=== PATIENT | male | born 1970 | race Caucasian/White ===

== ENCOUNTER 2017-01-16 05:01 | Emergency (ER) | payer BC ==
[~2017-01-16] VITALS: Ht 170.2 cm; Wt 97.0 kg
[~2017-01-16 05:01] MED LIST: ALEVE220 MG PO; ALLOPURINOL300 MG PO; FLEXERIL10 MG; FLEXERIL10 MG PO; FLONASE16 G1 BOTH NARES; INDOCIN25 MG PO; INDOCIN50 MG PO; INDOMETHACIN50 MG PO; KEFLEX500 MG PO; MITIGARE0.6 MG PO; MOTRIN600 MG PO; MOTRIN800 MG; MUCINEX D ER T1 EACH PO; NAPROSYN500 MG PO; NOHOMEMEDS; NORCO 5/3251 TABLET PO; NORCO 7.5/321 TABLET PO; PERCOCET 5/31 TABLET; PERCOCET 5/31 TABLET PO; PERCOCET 7.51 TABLET PO; TRICOR48 MG; ULTRAM50 MG PO; VIBRAMYCIN100 MG PO; no home med
[2017-01-16] MEDS ORDERED: INDOCIN25 MG PO (05:29)
[2017-01-16 05:44] VITALS: BP 148/88
== END 2017-01-16 05:44 | disposition home or self-care (01) ==
LOC: EME 05:01
DX: M10.9 Gout, unspecified (principal)
CPT/HCPCS: 99281; 99283

== ENCOUNTER 2017-03-26 19:19 | Emergency (ER) | payer BC ==
[~2017-03-26] VITALS: Ht 170.2 cm; Wt 103.3 kg
[2017-03-26] MEDS ORDERED: INDOCIN25 MG PO (21:02)
[2017-03-26 21:52] VITALS: BP 140/80
== END 2017-03-26 21:52 | disposition home or self-care (01) ==
LOC: EME 19:19
DX: M10.072 Idiopathic gout, left ankle and foot (principal)
CPT/HCPCS: 99281; 99284

== ENCOUNTER 2017-06-08 19:37 | Emergency (ER) | payer BC ==
[~2017-06-08] VITALS: Ht 170.2 cm; Wt 107.1 kg
[2017-06-08] MEDS ORDERED: MOTRIN800 MG PO (20:41)
[2017-06-08 21:44] VITALS: BP 135/88
== END 2017-06-08 21:30 | disposition home or self-care (01) ==
LOC: EME 19:37
DX: S50.02XA Contusion of left elbow, initial encounter (principal); W22.8XXA Striking against or struck by other objects, initial encounter
CPT/HCPCS: 73080; 99281; 99283

== ENCOUNTER 2017-06-10 17:52 | Emergency (ER) | payer BC ==
[~2017-06-10] VITALS: Ht 170.2 cm; Wt 106.0 kg
[~2017-06-10 17:52] MED LIST changes: +MOTRIN800 MG PO
[2017-06-10 19:03] LABS: HEMATOCRIT 41.2 % (38.0-50.0); MCH 29.8 PG (29.0-34.0); MCHC 33.7 G/DL (30.0-36.0); MCV 88.4 FL (86-99); MEAN PLAT.VOLUME 10.5 uM^3 (9.0-12.4); PLATELET COUNT 202 K/uL (156-360); RBC DIS.WIDTH-CV 13.1 % (11.8-14.6); RBC DIS.WIDTH-SD 42.4 % (39-53); RED BLOOD COUNT 4.66 M/uL (4.00-5.50); WHITE BLOOD COUNT 10.7 K/uL (4.1-10.2)
[2017-06-10 19:13] LABS: CHLORIDE 106 mEq/L (99-109); POTASSIUM 3.7 mEq/L (3.7-5.4); SODIUM 139 mEq/L (136-147)
[2017-06-10 19:14] LABS: GLUCOSE 105 mg/dL (70-99)
[2017-06-10 19:16] LABS: ANION GAP 9 MEQ/L (2-14)
[2017-06-10 19:18] LABS: GFR ESTIMATE (CALCULATED) > 59 mL/min/
[2017-06-10 19:19] LABS: UREA NITROGEN (BUN) 12 mg/dL (9-23)
[2017-06-10] MEDS ORDERED: CLEOCIN300 MG PO (19:29)
[2017-06-10 19:44] VITALS: BP 113/87
== END 2017-06-10 20:03 | disposition home or self-care (01) ==
LOC: EME 17:52
PROVIDERS: Physician Assistant Medical
DX: L03.114 Cellulitis of left upper limb (principal); S51.012A Laceration without foreign body of left elbow, initial encounter; W22.8XXA Striking against or struck by other objects, initial encounter; Z88.0 Allergy status to penicillin
CPT/HCPCS: 73080; 80048; 85027; 99281; 99284; J1885

== ENCOUNTER 2017-06-13 11:52 | Inpatient (IN) | payer BC ==
[~2017-06-13] VITALS: Ht 170.2 cm; Wt 102.0 kg
[~2017-06-13 11:52] MED LIST changes: +CLEOCIN300 MG PO
[2017-06-13 13:38] LABS: HEMATOCRIT 42.7 % (38.0-50.0); MCH 29.5 PG (29.0-34.0); MCHC 33.5 G/DL (30.0-36.0); MCV 88.2 FL (86-99); MEAN PLAT.VOLUME 10.4 uM^3 (9.0-12.4); PLATELET COUNT 257 K/uL (156-360); RBC DIS.WIDTH-CV 12.7 % (11.8-14.6); RBC DIS.WIDTH-SD 41.3 % (39-53); RED BLOOD COUNT 4.84 M/uL (4.00-5.50); WHITE BLOOD COUNT 9.4 K/uL (4.1-10.2)
[2017-06-13 13:46] LABS: CHLORIDE 107 mEq/L (99-109); POTASSIUM 3.8 mEq/L (3.7-5.4); SODIUM 137 mEq/L (136-147)
[2017-06-13 13:47] LABS: GLUCOSE 108 mg/dL (70-99)
[2017-06-13 13:49] LABS: ANION GAP 10 MEQ/L (2-14)
[2017-06-13 13:51] LABS: GFR ESTIMATE (CALCULATED) > 59 mL/min/
[2017-06-13 13:52] LABS: UREA NITROGEN (BUN) 12 mg/dL (9-23)
[2017-06-13] MEDS ORDERED: CLEOCIN150 MG PO (15:49)
[2017-06-13] MEDS ORDERED: IBUPROFEN800 MG PO (15:49)
[2017-06-13 18:10] VITALS: BP 133/77
[2017-06-14 00:06] VITALS: BP 115/58
[2017-06-14 06:56] VITALS: BP 117/63
[2017-06-14 15:16] VITALS: BP 119/62
[2017-06-14 23:47] VITALS: BP 125/67
[2017-06-15 07:50] VITALS: BP 105/64
[2017-06-15 16:23] VITALS: BP 120/65
[2017-06-16 00:05] VITALS: BP 121/58
[2017-06-16 07:05] VITALS: BP 120/75
[2017-06-16 09:42] VITALS: BP 120/75
[2017-06-16] MEDS ORDERED: KEFLEX500 MG PO (12:49)
== END 2017-06-16 16:03 | disposition home or self-care (01) | DRG 603 ==
LOC: EME 11:52 → 5SOUTH 16:04 → EDOF 16:04 → ENRESERV 16:05 → 5SOUTH 18:03
PROVIDERS: Physician Assistant Medical
DX: L03.114 Cellulitis of left upper limb (principal); M10.9 Gout, unspecified; G47.30 Sleep apnea, unspecified; Z88.0 Allergy status to penicillin
CPT/HCPCS: 73080; 73130; 73201; 80048; 83605; 85027; 87040; 93971; 99281; 99284; 99285; J0690; J1885; J3370; J7030

== ENCOUNTER 2017-06-28 21:19 | Emergency (ER) | payer BC ==
[~2017-06-28] VITALS: Ht 170.2 cm; Wt 106.5 kg
[~2017-06-28 21:19] MED LIST changes: +CLEOCIN150 MG PO; +IBUPROFEN800 MG PO
[2017-06-28 22:04] LABS: HEMATOCRIT 40.2 % (38.0-50.0); MCH 29.3 PG (29.0-34.0); MCHC 33.3 G/DL (30.0-36.0); MEAN PLAT.VOLUME 9.7 uM^3 (9.0-12.4); RBC DIS.WIDTH-CV 12.4 % (11.8-14.6); RBC DIS.WIDTH-SD 39.7 % (39-53); RED BLOOD COUNT 4.57 M/uL (4.00-5.50); WHITE BLOOD COUNT 7.5 K/uL (4.1-10.2)
[2017-06-28 22:14] LABS: PLATELET COUNT 365 K/uL (156-360)
[2017-06-28 22:23] LABS: CHLORIDE 111 mEq/L (99-109); POTASSIUM 3.9 mEq/L (3.7-5.4); SODIUM 140 mEq/L (136-147)
[2017-06-28 22:25] LABS: GLUCOSE 119 mg/dL (70-99)
[2017-06-28 22:26] LABS: ANION GAP 6 MEQ/L (2-14)
[2017-06-28 22:29] LABS: GFR ESTIMATE (CALCULATED) > 59 mL/min/ (58.99-99999)
[2017-06-28 22:30] LABS: UREA NITROGEN (BUN) 14 mg/dL (9-23)
[2017-06-28 22:31] LABS: URIC ACID 7.8 mg/dL (3.1-9.2)
[2017-06-28] MEDS ORDERED: KEFLEX500 MG PO (22:35)
[2017-06-29 01:10] VITALS: BP 110/70
== END 2017-06-29 01:12 | disposition home or self-care (01) ==
LOC: EME 21:19
PROVIDERS: Nurse Practitioner Family
DX: L03.114 Cellulitis of left upper limb (principal); Z88.0 Allergy status to penicillin
CPT/HCPCS: 73080; 80048; 84550; 85027; 86140; 99281; 99284

== ENCOUNTER 2017-08-28 09:11 | Emergency (ER) | payer BC ==
[~2017-08-28] VITALS: Ht 170.2 cm; Wt 105.6 kg
[2017-08-28 13:10] LABS: BASOPHIL (%) 0.3 % (0-1); EOSINOPHIL (%) 0.4 % (0-5); HEMATOCRIT 44.7 % (38.0-50.0); HEMOGLOBIN 14.8 G/DL (12.5-16.6); IMMATURE GRANULOCYTE (%) 0.5 % (0.0-0.7); LYMPHOCYTE (%) 34.7 % (15-42); LYMPHOCYTE COUNT 3.6 K/uL (1.0-2.8); MCH 28.9 PG (29.0-34.0); MCHC 33.1 G/DL (30.0-36.0); MCV 87.3 FL (86-99); MONOCYTE (%) 9.1 % (3-12); MONOCYTE COUNT 0.9 K/uL (0-0.8); NEUTROPHIL COUNT 5.7 K/uL (1.8-6.4); PLATELET COUNT 255 K/uL (156-360); RBC DIS.WIDTH-CV 13.9 % (11.8-14.6); RBC DIS.WIDTH-SD 44.9 % (39-53); RED BLOOD COUNT 5.12 M/uL (4.00-5.50); WHITE BLOOD COUNT 10.3 K/uL (4.1-10.2)
[2017-08-28 13:17] LABS: CHLORIDE 107 mEq/L (99-109); POTASSIUM 3.8 mEq/L (3.7-5.4); SODIUM 140 mEq/L (136-147)
[2017-08-28 13:18] LABS: GLUCOSE 124 mg/dL (70-99)
[2017-08-28 13:22] LABS: CREATININE 1.1 mg/dL (0.6-1.3); GFR ESTIMATE (CALCULATED) > 59 mL/min/ (58.99-99999)
[2017-08-28 13:23] LABS: UREA NITROGEN (BUN) 12 mg/dL (9-23)
[2017-08-28 13:25] LABS: URIC ACID 8.4 mg/dL (3.1-9.2)
[2017-08-28] MEDS ORDERED: PREDNISONE20 MG PO (13:59)
[2017-08-28] MEDS ORDERED: VIBRAMYCIN100 MG PO (13:59)
[2017-08-28] MEDS ORDERED: INDOCIN50 MG PO (13:59)
[2017-08-28] MEDS ORDERED: NORCO 7.5/321 TABLET PO (13:59)
[2017-08-28 14:35] VITALS: BP 140/92
[2017-08-29 10:38] LABS: LYME DISEASE SEROLOGY SCREEN NEGATIVE (NEGATIVE)
== END 2017-08-28 14:36 | disposition home or self-care (01) ==
LOC: EME 09:11
PROVIDERS: Physician Assistant
DX: M10.9 Gout, unspecified (principal); M25.522 Pain in left elbow; F17.200 Nicotine dependence, unspecified, uncomplicated; Z88.0 Allergy status to penicillin
CPT/HCPCS: 73080; 80048; 84550; 85025; 86618; 99281; 99284; J7512

== ENCOUNTER 2017-10-04 19:09 | Emergency (ER) | payer BC ==
[~2017-10-04] VITALS: Ht 170.2 cm; Wt 108.0 kg
[~2017-10-04 19:09] MED LIST changes: +PREDNISONE20 MG PO
[2017-10-04] MEDS ORDERED: MEDROL DOSEPAK4 MG PO (20:08)
[2017-10-04] MEDS ORDERED: INDOCIN50 MG PO (20:08)
[2017-10-04] MEDS ORDERED: PERCOCET 5/31 TABLET PO (20:08)
[2017-10-04 20:29] VITALS: BP 134/94
== END 2017-10-04 20:29 | disposition home or self-care (01) ==
LOC: EME 19:09
DX: M10.9 Gout, unspecified (principal); Z88.0 Allergy status to penicillin
CPT/HCPCS: 99281; 99284; J7512

== ENCOUNTER 2018-01-30 12:54 | Emergency (ER) | payer BC ==
[~2018-01-30] VITALS: Ht 170.2 cm; Wt 104.5 kg
[~2018-01-30 12:54] MED LIST changes: +MEDROL DOSEPAK4 MG PO
[2018-01-30] MEDS ORDERED: MEDROL DOSEPAK4 MG PO (13:55)
[2018-01-30] MEDS ORDERED: PERCOCET 5/31 TABLET PO (13:55)
[2018-01-30] MEDS ORDERED: INDOMETHACIN50 MG PO (13:55)
[2018-01-30 14:47] VITALS: BP 121/85
== END 2018-01-30 14:48 | disposition home or self-care (01) ==
LOC: EME 12:54
DX: M10.9 Gout, unspecified (principal); M79.672 Pain in left foot; Z88.0 Allergy status to penicillin
CPT/HCPCS: 99281; 99284; J7512

== ENCOUNTER 2018-02-27 11:17 | Emergency (ER) | payer BC ==
[~2018-02-27] VITALS: Ht 172.7 cm; Wt 108.2 kg
[2018-02-27] MEDS ORDERED: INDOCIN50 MG PO (12:03)
[2018-02-27 12:11] VITALS: BP 156/99
== END 2018-02-27 12:23 | disposition home or self-care (01) ==
LOC: EME 11:17
DX: M10.9 Gout, unspecified (principal); I10 Essential (primary) hypertension; M19.90 Unspecified osteoarthritis, unspecified site; Z87.39 Personal history of other diseases of the musculoskeletal system and connective tissue; Z88.0 Allergy status to penicillin
CPT/HCPCS: 99281; 99284; J7512